=== PATIENT | male | born 1990 | race Caucasian/White ===

== ENCOUNTER 2024-11-13 09:00 | Outpatient (RCR) | payer BC, SELFPAY | END 2025-03-13 23:59 | disposition home or self-care (01) | PROVIDERS: PCP Family Medicine; Visit Provider Family Medicine | DX: M54.2 Cervicalgia (principal); G89.29 Other chronic pain; R51.9 Headache, unspecified; Z51.89 Encounter for other specified aftercare | CPT/HCPCS: 97110; 97140; 97163 ==